=== PATIENT | female | born 1960 | race Caucasian/White ===

== ENCOUNTER → 2021-09-12 | Outpatient (CLI) | payer OTHER ==
[~2021-09-12] MED LIST: LOSARTAN-HCTZ1 EAC1 PO; SIMVASTATIN20 MG PO; SYNTHROID50 MCG PO; VENLAFAXINE HC150 M1 PO; VITAMIN D21250 MCG PO
[2021-09-12 11:23] LABS: HEMOGLOBIN 13.3 gm/dl (12.3-15.3); RED BLOOD COUNT 4.59 M/UL (4.00-5.10); WHITE BLOOD COUNT 7.8 K/UL (4.5-11.0)
[2021-09-12 11:46] LABS: BUN/CREATININE RATIO 18 (0-10)
== END ==
LOC: OPSV2 10:00
PROVIDERS: Anesthesiology; Obstetrics & Gynecology
DX: Z01.818 Encounter for other preprocedural examination (principal); N83.201 Unspecified ovarian cyst, right side; R10.2 Pelvic and perineal pain
CPT/HCPCS: 36415; 80048; 81001; 85025; 93005

== ENCOUNTER → 2021-09-19 | Day surgery (SDC) | payer OTHER ==
[~2021-09-19] MED LIST changes: +HYDROCODON-ACE1 EAC4 PO; +IBU600 MG PO
== END | disposition home or self-care (01) ==
LOC: OR 07:30
DX: D27.0 Benign neoplasm of right ovary (principal); E03.9 Hypothyroidism, unspecified; E78.5 Hyperlipidemia, unspecified; I10 Essential (primary) hypertension; Z88.2 Allergy status to sulfonamides; Z88.8 Allergy status to other drugs, medicaments and biological substances
CPT/HCPCS: J1100; J1885; J2001; J2405; J2704; J2795; J3010